=== PATIENT | male | born 1965 | race Caucasian/White ===

== ENCOUNTER 2019-01-31 12:26 | Emergency (ER) | payer OTHER, BC ==
[2019-01-31 13:33] LABS: ADD MAN DIFF? NO
[2019-01-31 13:38] LABS: BASOPHIL # 0.1 10^3/ul (0.0-0.1); BASOPHILS % 0.9 % (0.0-2.0); EOSINOPHILS # 0.1 10^3/ul (0.0-0.5); EOSINOPHILS % 0.9 % (0.0-7.0); HEMATOCRIT 45.5 % (42.0-52.0); HEMOGLOBIN 16.2 g/dl (14.0-18.0); LYMPHOCYTES # 2.5 10^3/ul (0.8-2.9); LYMPHOCYTES % 36.7 % (15.0-51.0); MEAN CORPUSCULAR HEMOGLOBIN 30.2 pg (29.0-33.0); MEAN CORPUSCULAR HGB CONC 35.6 g/dl (32.0-37.0); MEAN CORPUSCULAR VOLUME 84.7 fl (82.0-101.0); MEAN PLATELET VOLUME 10.6 fl (7.4-10.4); MONOCYTE # 0.4 10^3/ul (0.3-0.9); MONOCYTES % 6.3 % (0.0-11.0); NEUTROPHIL # 3.7 10^3/ul (1.6-7.5); NEUTROPHILS % 55.1 % (39.0-77.0); PLATELET COUNT 204 10^3/UL (140-415); RED BLOOD COUNT 5.37 10^6/ul (4.70-6.10); RED CELL DISTRIBUTION WIDTH 12.2 % (11.5-14.5)
[2019-01-31 13:38] LABS: WHITE BLOOD COUNT 6.7 10^3/ul (4.8-10.8)
[2019-01-31 13:52] LABS: ANION GAP 9 (5-13); BLOOD UREA NITROGEN 15 mg/dl (7-20); CALCIUM 9.1 mg/dl (8.4-10.2); CARBON DIOXIDE 28 mmol/L (21-31); CHLORIDE 98 mmol/L (97-110); CHOL/HDL RATIO 5.1 RATIO; CHOLESTEROL 226 mg/dl (100-200); CREATINE KINASE 168 IU/L (23-200); CREATININE 0.88 mg/dl (0.61-1.24); Estimated GFR > 60 mL/min (>60); GLUCOSE 298 mg/dl (70-220); HDL CHOLESTEROL 44 mg/dl (28-71); LDL CHOLESTEROL,CALCULATED 135 mg/dl; POTASSIUM 3.7 mmol/L (3.5-5.1); SODIUM 135 mmol/L (135-144); TRIGLYCERIDES 235 mg/dl (0-149)
[2019-01-31 13:53] LABS: ETHANOL < 10.0 mg/dl (0-0)
[2019-01-31] MEDS: IOHEXOL 350MG/ML 50 ML BTL (13:54)
[2019-01-31] MEDS: IOHEXOL 100 ML (13:54)
[2019-01-31] MEDS: SOD CHLORIDE 0.9% 100 ML (13:55)
[2019-01-31 14:00] LABS: HEMOGLOBIN A1C 11.5 % (0-5.9)
[2019-01-31 14:04] LABS: CK INDEX 1.4; CK-MB 2.36 ng/ml (0.0-2.4); TROPONIN-I < 0.012 ng/ml (0.000-0.120)
[2019-01-31 14:08] LABS: INR 0.93; PROTIME 12.6 Sec (11.9-14.9)
[2019-01-31 14:09] LABS: PARTIAL THROMBOPLASTIN TIME 26.5 Sec (23.0-35.0)
[2019-01-31] MEDS: SOD CHLORIDE 0.9% 500 ML IV (14:11)
[2019-01-31] MEDS: predniSONE 20 MG TAB PO (15:21)
[2019-01-31] MEDS: ACYCLOVIR 400 MG TAB PO (15:21)
== END 2019-01-31 15:45 | disposition home or self-care (01) ==
LOC: E/R 12:26
DX: G51.0 Bell's palsy (principal); I10 Essential (primary) hypertension; E11.9 Type 2 diabetes mellitus without complications; J45.909 Unspecified asthma, uncomplicated; R07.9 Chest pain, unspecified
CPT/HCPCS: 36415; 70450; 70496; 70498; 71045; 80048; 80061; 80307; 82550; 82553; 83036; 84484; 85025; 85610; 85730; 93005; 99285-25